=== PATIENT | male | born 1980 | race Caucasian/White ===

== ENCOUNTER 2023-04-27 15:40 | Emergency (ER) | payer BC, SELFPAY ==
[2023-04-27 16:05] VITALS: BP 153/93; PULSE 95; RESP 18; TEMP 36.2; O2SAT 98
[2023-04-27 19:14] VITALS: BP 141/100; PULSE 91; O2SAT 100
--- NOTE | 2023-04-27 22:07 | ED.RECABL ---
HPI - Recheck/Abnormal Lab/Rx General Chief Complaint: Recheck/Abnormal Lab/Rx Stated Complaint: htn Time Seen by Provider: 04/27/23 21:06 Source: patient and family Limitations: no limitations History of Present Illness HPI narrative: Patient is a 42-year-old male presents to the emergency department accompanied by his for concerns that his blood pressure medication is not working. Patient states he has been taking losartan 100 mg once daily for years and has been noticing over the past few weeks that his blood pressure has been higher he started checking his blood pressure at home and it was in the 140s over 90s. Patient states he has been having a cold over the past week for which he has been taking medication with Sudafed and this is been seemed to worsen his blood pressure. Patient notes that he had a primary care physician appointment yesterday but he missed it due to weather. Patient notes that his cold has been consistent with congestion and runny nose in addition to a slight cough. Patient notes that his blood pressure was further well controlled in the past. Patient denies taking his blood pressure according to the aha guidelines for blood pressure measurements at home. Patient denies hematuria, nausea, vomiting, numbness, weakness, vision changes, difficulty swallowing, chest pain, difficulty breathing, abdominal pain, difficulty urinating. Related Data Allergies Allergy/AdvReac Type Severity Reaction Status Date / Time No Known Allergies Allergy Verified 04/27/23 16:09 Review of Systems Review of Systems: A 10 system review of systems was completed on the patient and is negative except for what is stated in the HPI. Nursing and ancillary documentation was reviewed. PMFSH Comments At time of signature, I have reviewed and agree with nursing past medical, surgical, social and family history unless otherwise noted. Please see the nursing chart for further information. There is no relevant family history pertinent to the presenting complaint. Exam Narrative: CONST: No acute distress. Well nourished. HENMT: Head is normocephalic and atraumatic. Moist mucous membranes. No posterior oropharynx erythema. EYES: No conjunctival icterus, injection, or pallor. PERRL. NECK: No meningeal signs. No JVD. RESP: Able to speak in full sentences. Normal respiratory effort. CTAB. CARDIO: Regular rate. Regular rhythm. 2+ DP and radial pulses bilaterally. GI: Nondistended. No tenderness to palpation. Soft. : No CVA tenderness to palpation. SKIN: No rashes or lesions noted on exposed skin. NEURO: Oriented x3. Moves all extremities. No focal neurological deficits. EXTREM/MSK/BACK: No pedal edema. PSYCH: Normal affect. Course Vital Signs Vital signs: Vital Signs Temperature 97.1 F L 04/27/23 16:05 Pulse Rate 95 04/27/23 16:05 Respiratory Rate 18 04/27/23 16:05 Blood Pressure 153/93 H 04/27/23 16:05 Pulse Oximetry 98 04/27/23 16:05 Oxygen Delivery Room Air 04/27/23 16:05 Temperature 97.1 F L 04/27/23 16:05 Pulse Rate 91 04/27/23 19:14 Respiratory Rate 18 04/27/23 16:05 Blood Pressure 141/100 H 04/27/23 19:14 Pulse Oximetry 100 04/27/23 19:14 Oxygen Delivery Room Air 04/27/23 16:05 MDM - Recheck/Abnormal Lab/Rx MDM Narrative Medical decision making narrative: Patient presents with the above complaint. Initial vitals are remarkable for hypertension. Physical examination as noted above. Plan discussed: Guidelines on aha blood pressure measurements at home with the patient to keep a blood pressure log for follow-up with his primary care physician promptly, start patient on a calcium channel miquel, cessation of any Sudafed. Patient offered viral swab testing and elected to forego any further testing for viral illnesses, supportive care discussed. Patient counseled on signs symptoms of hypertensive emergencies and reasons to immediately return to the emergency depar
[2023-04-27] MEDS: amLODIPine BESYLATE 5 MG TABLET PO (22:29)
[2023-04-27 22:30] VITALS: BP 142/90; PULSE 62; RESP 16; TEMP 36.8; O2SAT 99
== END 2023-04-27 22:31 | disposition home or self-care (01) ==
PROVIDERS: Emergency Provider Student in an Organized Health Care Education/Training Program
DX: I10 Essential (primary) hypertension (principal); J06.9 Acute upper respiratory infection, unspecified
CPT/HCPCS: 99283; A9270